=== PATIENT | male | born 1975 | race African-American/Black ===

== ENCOUNTER 2017-02-27 15:59 | Emergency (ER) | payer OTHER ==
[~2017-02-27] VITALS: Ht 180.3 cm; Wt 70.3 kg
[~2017-02-27 15:59] MED LIST: PHEN100C3
--- NOTE | 2017-02-27 16:05 | NUR ---
Patient BIBA ACLS, transferred to bed 4. RN evaluating patient at bedside.
--- NOTE | 2017-02-27 16:10 | NUR ---
41M BIBA FROM HOME C/O WITNESSED SEIZURE AT HOME FOR 1 MINUTE BY DAUGHTER. PT AA&OX4 ON ARRIVAL. DENIES Diarrhea; SKIN IS PINK/WARM/DRY; AAOX4 WITH EVEN AND STEADY GAIT; LUNGS CLEAR BL; HR EVEN AND REGULAR; PT DENIES ANY FEVER, CP, SOB, OR COUGH AT THIS TIME; PATIENT STATES head ache PAIN OF 7/10 AT THIS TIME; VSS; PATIENT POSITIONED FOR COMFORT; HOB ELEVATED; BEDRAILS UP X2; BED DOWN. ER MD MADE AWARE OF PT STATUS.
[2017-02-27 16:15] VITALS: BP 122/77
--- NOTE | 2017-02-27 17:09 | NUR ---
Dr. Pfeiffer evaluating patient at bedside.
[2017-02-27] MEDS ORDERED: PHENYTOIN 1,000 MG in NACL 0.9% 100 ML IV ONE (17:15)
[2017-02-27] MEDS ORDERED: PHENYTOIN 1,000 MG in NACL 0.9% 100 ML IV SCH (18:00)
--- NOTE | 2017-02-27 18:10 | NUR ---
Pt resting/sleeping comfortably on bed, no acute distress, no seizure activity noted, hooked up on monitor, will continue to monitor
[2017-02-27 19:12] VITALS: BP 121/61
== END 2017-02-27 19:12 | disposition home or self-care (01) ==
LOC: MED 15:59
DX: G40.89 Other seizures (principal); R11.0 Nausea; F17.210 Nicotine dependence, cigarettes, uncomplicated; Z79.899 Other long term (current) drug therapy
CPT/HCPCS: 96365; 99284; J1165; J7030

== ENCOUNTER 2022-04-17 12:50 | Emergency (ER) | payer OTHER ==
[~2022-04-17] VITALS: Ht 180.3 cm; Wt 73.9 kg
[~2022-04-17 12:50] MED LIST changes: +ONDA4TAB PO; -PHEN100C3; +PHEN100C3 PO
[2022-04-17 13:04] VITALS: BP 131/82
--- NOTE | 2022-04-17 13:49 | NUR ---
47y/o male BIB by with c/o seizure today. Per Mignon RN, pt's reports having witnessed his seizure while pt was napping, and a ground level fall. Pt reports having 7/10 aching like neck pain, and feeling weak s/p sz. Pt states being noncompliant with sz medication [id number], denies dizziness. Pt placed in gown, on beside monitor, sz precautions in place, side rails x2.
[2022-04-17] MEDS ORDERED: LEVE500T9 PO (14:06)
[2022-04-17 14:26] VITALS: BP 131/82
--- NOTE | 2022-04-17 14:26 | NUR ---
Patient discharged with v/s stable. Written and verbal after care instructions about seizure given and explained. Patient alert, oriented and verbalized understanding of instructions. Ambulatory with steady gait. All questions addressed prior to discharge. ID band removed. Patient advised to follow up with PMD. Rx of Keppra given. Patient educated on indication of medication including possible reaction and side effects. Opportunity to ask questions provided and answered.
== END 2022-04-17 13:47 | disposition home or self-care (01) ==
LOC: MED 12:50
DX: R56.9 Unspecified convulsions (principal); M54.2 Cervicalgia; Z91.14 Patient's other noncompliance with medication regimen; Z79.899 Other long term (current) drug therapy
CPT/HCPCS: 99283

== ENCOUNTER 2022-12-05 08:47 | Day surgery (SDC) | payer OTHER ==
[~2022-12-05] VITALS: Ht 180.3 cm; Wt 68.0 kg
[~2022-12-05 08:47] MED LIST changes: +LEVE500T9 PO
[2022-12-05] MEDS ORDERED: MIDAZOLAM 2 MG/2 ML VIAL ONE (09:41)
[2022-12-05] MEDS ORDERED: diphenhydrAMINE 50 MG/ML VIAL ONE (09:41)
[2022-12-05] MEDS ORDERED: fentaNYL citrate 0.05 MG/ML VIAL ONE (09:41)
[2022-12-05] MEDS ORDERED: LIDOCAINE 2% 100 MG/5 ML UJET TP ONE (09:41)
[2022-12-05] MEDS ORDERED: fentaNYL citrate 0.05 MG/ML VIAL IVP ONE (10:45)
[2022-12-05] MEDS ORDERED: MIDAZOLAM 5 MG/5 ML VIAL IV ONE (10:45)
[2022-12-05] MEDS ORDERED: diphenhydrAMINE 50 MG/ML VIAL IVP ONE (10:45)
== END 2022-12-05 11:40 | disposition home or self-care (01) ==
LOC: MDS 08:47 → MMU 08:52 → MDS 11:40
PROVIDERS: ATTEND Internal Medicine Gastroenterology
DX: Z12.11 Encounter for screening for malignant neoplasm of colon (principal); K63.5 Polyp of colon; K64.8 Other hemorrhoids
CPT/HCPCS: 45380; 88305; J1200; J2250; J3010